=== PATIENT | male | born 1955 | race Caucasian/White ===

== ENCOUNTER 2018-08-02 06:56 | Day surgery (SDC) | payer MEDICARE, BC ==
[~2018-08-02 06:56] MED LIST: ACETAMINOPHEN 1,000 MG/100 ML BTL IV ONE; CEFAZOLIN 2 Gram 2 GM/50 ML BAG IVPB ONE
[2018-08-02] MEDS ORDERED: MIDAZOLAM HCL 2MG/2ML VIAL IV ONE (06:57)
[2018-08-02] MEDS ORDERED: KETAMINE HCL 100MG/1ML VIAL INJ ONE (06:57)
[2018-08-02] MEDS ORDERED: SEVOFLURANE 250 ML INH ONE (06:57)
[2018-08-02] MEDS ORDERED: DEXAMETHASONE 4 MG/ML 1ML VIAL IVP ONE (06:57)
[2018-08-02] MEDS ORDERED: PROPOFOL 10 MG/ML VIAL IV ONE (06:57)
[2018-08-02] MEDS ORDERED: ROPIVACAINE HCL (NAROPIN) /PF 5MG/ML 20ML VIAL IV ONE (06:57)
[2018-08-02] MEDS ORDERED: BUPIVACAINE 0.25% W/EPI MPF 30ML VIAL IVP ONE (06:57)
[2018-08-02] MEDS ORDERED: KETOROLAC 30 MG/ML VIAL IVP ONE (06:57)
[2018-08-02] MEDS ORDERED: LIDOCAINE 2% MDV (20MG/ML) 20ML VIAL IV ONE (06:57)
[2018-08-02] MEDS ORDERED: EPHEDRINE SULFATE 50 MG/ML ML IV ONE (06:57)
--- NOTE | 2018-08-03 12:31 | Operative Note ---
DATE OF SURGERY: 08/02/2018 Surgeon: Alexander Colmenares DO PREOPERATIVE DIAGNOSIS: Reducible right inguinal hernia. POSTOPERATIVE DIAGNOSIS: Reducible right inguinal hernia, pantaloon hernia. OPERATION: Open right inguinal herniorrhaphy with mesh. Indication: The patient is a 63-year-old male who has had a long-standing right inguinal hernia. 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 Risks include but are not limited to bleeding, infection, acute or chronic pain, recurrence. He understood this fully. Thereafter, consent was signed and questions answered. PROCEDURE: He was taken to the operating room and placed in a supine position. General anesthesia was administered per the department of anesthesia. The patient right inguinal region was shaved of hair and prepped and draped in a sterile fashion. Adequate timeout was performed. He did receive preoperative antibiotics. He did undergo an inguinal block per the department of anesthesia. At this time, the oblique region was anesthetized with a total of 5 mL of 0.25% Sensorcaine with epinephrine. A 4 cm incision was made. This was carried down through copious amounts of subcutaneous tissue to where we encountered the hernia sac. The patient had a large hernia which was coming through the superficial inguinal ring. The external oblique aponeurosis essentially blown out, very thin in nature and almost indiscernible. At this time, the large inguinal hernia was reduced out of the scrotum. A small elijah was made in the lateral aspect of the aponeurosis of external oblique. This was enlarged through the superficial inguinal ring. Superior and inferior flaps were developed. The Kaleb was placed around the spermatic cord and retracted laterally. The patient had a large size direct hernia. The floor was imbricated with 0 Vicryl starting from the pubic tubercle to the deep inguinal ring. At this time, cremasteric fiber was taken down. The patient had a large indirect hernia sac as well as cord lipoma. High ligations of each were done. The patient's deep inguinal ring was extremely patulous. Therefore, a plug was used. An external plug was placed here and sutured in with 2-0 Vicryl. The deep inguinal ring was approximated as well. At this time, a right-sided ProGrip mesh was obtained. This was placed in the floor of the inguinal canal with excellent overlap of the pubic tubercle. Sutures went at the level of pubic tubercle, the second portion of the inguinal ligament, and the internal oblique aponeurosis. The lateral triangle was protected with the lateral aspect of the mesh. At this time, the aponeurosis was closed over the cord although this was very small in nature due to the size of the hernia. Magda layer was closed with 3-0 Vicryl, and skin was closed with 4-0 Vicryl. The patient tolerated procedure well. FINDINGS ON SURGERY: Right inguinal hernia, pantaloon, repaired as above. CC: MD SHREYA Jones
== END 2018-08-02 10:25 | disposition home or self-care (01) ==
LOC: SUR 06:56
PROVIDERS: ATTEND Surgery
DX: K40.90 Unilateral inguinal hernia, without obstruction or gangrene, not specified as recurrent (principal); I10 Essential (primary) hypertension; M10.9 Gout, unspecified
CPT/HCPCS: 49505; 00830; 64425; 76942; J1885; J0690; J2795; J3490